=== PATIENT | female | born 2000 | race Native Hawaiian/Other Pacific Islander ===

== ENCOUNTER 2020-03-26 20:18 | Emergency (ER) | payer OTHER ==
[~2020-03-26] VITALS: Ht 152.4 cm; Wt 59.4 kg
[2020-03-26 20:52] LABS: PLATELET COUNT 256 K/uL (152-353)
[2020-03-26 21:00] LABS: POTASSIUM 3.9 mmol/L (3.6-5.2)
[2020-03-26 21:33] LABS: PARTIAL THROMBOPLASTIN TIME 22.3 SECONDS (24.5-33.6)
[2020-03-26 21:53] VITALS: BP 124/92; TEMP 98.6
== END 2020-03-26 21:53 | disposition short-term general hospital (02) ==
LOC: ED 20:18
PROVIDERS: Hospitalist
DX: S30.1XXA Contusion of abdominal wall, initial encounter (principal); Z3A.38 38 weeks gestation of pregnancy; V58.0XXA Driver of pick-up truck or van injured in noncollision transport accident in nontraffic accident, initial encounter; Y92.89 Other specified places as the place of occurrence of the external cause
CPT/HCPCS: 36415; 80053; 81000; 85027; 85610; 85730; 96365; 99284

== ENCOUNTER 2022-01-17 15:54 | Emergency (ER) | payer OTHER ==
[~2022-01-17] VITALS: Ht 152.4 cm; Wt 47.6 kg
[2022-01-17 16:00] VITALS: BP 119/69; TEMP 98.9
== END 2022-01-17 16:25 | disposition home or self-care (01) ==
LOC: ED 15:54
DX: Z48.02 Encounter for removal of sutures (principal)